=== PATIENT | female | born 1950 | race African-American/Black ===

== ENCOUNTER 2023-04-20 12:28 | Day surgery (SDC) | payer OTHER ==
[2023-04-20] MEDS ORDERED: LIDOCAINE 1% 500 MG/50 ML VIAL ONE (14:43)
== END 2023-04-20 16:00 | disposition home or self-care (01) ==
LOC: MDS 12:28 → MMU 12:30 → MDS 16:00
PROVIDERS: ATTEND Internal Medicine Gastroenterology
DX: K75.81 Nonalcoholic steatohepatitis (NASH) (principal); I10 Essential (primary) hypertension; E11.9 Type 2 diabetes mellitus without complications; E78.00 Pure hypercholesterolemia, unspecified; Z90.710 Acquired absence of both cervix and uterus; Z79.82 Long term (current) use of aspirin; Z79.84 Long term (current) use of oral hypoglycemic drugs; Z79.899 Other long term (current) drug therapy
CPT/HCPCS: 47000; 76942; J2001; Q0092